=== PATIENT | male | born 1940 | race Caucasian/White ===

== ENCOUNTER 2025-03-18 09:46 | Outpatient (CLI) | payer MEDICARE, BC | END 2025-03-18 09:47 | disposition home or self-care (01) | LOC: CSHSLEEP 09:46 | PROVIDERS: ATTEND Internal Medicine | DX: G47.33 Obstructive sleep apnea (adult) (pediatric) (principal); K21.9 Gastro-esophageal reflux disease without esophagitis; I10 Essential (primary) hypertension | CPT/HCPCS: 95800 ==